=== PATIENT | male | born 1970 ===

== ENCOUNTER → 2023-07-07 09:42 | Outpatient (CLI) | payer OTHER ==
[2023-07-07 11:16] LABS: HEMATOCRIT 45.5 % (39.0-48.0); HEMOGLOBIN 15.6 g/dL (13-16.00); MEAN CELL VOLUME 86.3 fL (80.0-100.00); MEAN CORPUSCULAR HEMOGLOBIN 29.6 pg (27.00-32.0); MEAN CORPUSCULAR HGB CONC 34.3 g/dl (32.0-36.0); PLATELET COUNT 211 K/uL (150-450); RED BLOOD COUNT 5.28 M/uL (4.00-6.00); RED CELL DISTRIBUTION WIDTH 13.9 % (11.5-14.5)
[2023-07-07 11:22] LABS: URINE APPEARANCE Clear; URINE BILIRRUBIN Negative (NEGATIVE); URINE BLOOD Negative; URINE COLOR Yellow; URINE GLUCOSE Negative (NEGATIVE); URINE LEUKOCYTE Negative; URINE NITRATE Negative; URINE PROTEIN Negative (NEGATIVE); URINE UROBILINOGEN 0.2 E.U./dl
[2023-07-07 11:54] LABS: URINE BACTERIA 2.5 uL (0.0-1933); URINE EPITHELIAL CELLS 0.9 uL (0.0-38.8); URINE MUCUS SCANT; URINE RBC 0.8 uL (0.0-20.8); URINE WBC 0.7 uL (0.0-23.2)
[2023-07-07 12:01] LABS: ALBUMIN 3.9 gm/dL (3.4-5.0); BILIRUBIN TOTAL 0.61 mg/dL (0.3-1.2); CALCIUM 9.4 mg/dL (8.5-10.1); CHOL HDL RATIO 3.1 (0-5.0); CREATININE SERUM 0.86 mg/dL (0.70-1.30); GFR 93.02; GLOBULINA 4.1 G/DL (2.4-3.5); POTASSIUM 4.62 mEq/L (3.5-5.1); T4 FREE 1.04 NG/ML (0.76-1.46); TSH 2.96 uIU/mL (0.358-3.74)
== END | disposition home or self-care (01) ==
LOC: LAB 09:42
DX: E11.65 Type 2 diabetes mellitus with hyperglycemia (principal); E11.8 Type 2 diabetes mellitus with unspecified complications; E78.5 Hyperlipidemia, unspecified; Z79.84 Long term (current) use of oral hypoglycemic drugs; I11.9 Hypertensive heart disease without heart failure; E66.8 Other obesity; D64.9 Anemia, unspecified; R94.5 Abnormal results of liver function studies; E11.9 Type 2 diabetes mellitus without complications; R73.09 Other abnormal glucose; E03.9 Hypothyroidism, unspecified; N39.0 Urinary tract infection, site not specified

== ENCOUNTER → 2023-12-07 09:04 | Outpatient (CLI) | payer OTHER ==
[2023-12-07 11:18] LABS: CREATININE SERUM 0.83 mg/dL (0.70-1.30); GFR 96.55; POTASSIUM 4.1 mEq/L (3.5-5.1)
== END | disposition home or self-care (01) ==
LOC: LAB 09:04
DX: E11.65 Type 2 diabetes mellitus with hyperglycemia (principal); E11.8 Type 2 diabetes mellitus with unspecified complications; E78.5 Hyperlipidemia, unspecified; Z79.84 Long term (current) use of oral hypoglycemic drugs; I11.9 Hypertensive heart disease without heart failure; E66.8 Other obesity